=== PATIENT | male | born 2000 | race Caucasian/White ===

== ENCOUNTER 2022-10-11 09:04 | Emergency (ER) | payer SELFPAY | END 2022-10-11 11:26 | disposition home or self-care (01) | LOC: ERS 09:04 | DX: J01.90 Acute sinusitis, unspecified (principal); F17.290 Nicotine dependence, other tobacco product, uncomplicated | CPT/HCPCS: 99283 ==

== ENCOUNTER 2022-11-03 17:40 | Emergency (ER) | payer SELFPAY ==
[2022-11-03] MEDS ORDERED: Ketorolac Tromethamine 30 MG/ML VIAL ONE (18:31)
== END 2022-11-03 19:54 | disposition home or self-care (01) ==
LOC: ERS 17:40
DX: M54.2 Cervicalgia (principal); M54.50 Low back pain, unspecified; F17.210 Nicotine dependence, cigarettes, uncomplicated
CPT/HCPCS: 72125; 72131; 96372; J1885